=== PATIENT | male | born 1955 | race Caucasian/White ===

== ENCOUNTER 2020-02-04 17:16 | Inpatient (IN) | payer OTHER ==
[~2020-02-04] VITALS: Ht 182.9 cm; Wt 117.9 kg
[2020-02-18] MEDS ORDERED: VASOTEC5 MG PO (07:57)
[2020-02-18] MEDS ORDERED: CARVEDILOL PO (07:57)
[2020-02-18] MEDS ORDERED: LANOXIN125 MCG PO (07:58)
[2020-02-18] MEDS ORDERED: LASIX20 MG PO (07:58)
[2020-02-18] MEDS ORDERED: ALDACTONE25 MG PO (07:59)
[2020-02-18] MEDS ORDERED: ELIQUIS5 MG PO (07:59)
[2020-02-23] MEDS ORDERED: CARVEDILOL25 M1 PO (15:55)
[2020-02-25] MEDS ORDERED: DUI500 PO (13:44)
[2020-02-25] MEDS ORDERED: PERCOCET 5-3251 EACH PO (13:44)
[2020-02-25] MEDS ORDERED: ELIQUIS5 M1 PO (13:44)
== END 2020-02-25 19:36 | DRG 470 ==
LOC: SURH 02-23 08:30 → EDBD 02-23 08:30 → SURG 02-23 10:12 → O/R 02-23 10:12 → SURH 02-23 13:00 → SURG 02-23 17:02
PROVIDERS: ADMIT Orthopaedic Surgery; ATTEND Orthopaedic Surgery
PROC: 0MNN0ZZ Release Right Knee Bursa and Ligament, Open Approach (ICD-10-PCS; 2020-02-23)
PROC: 0SRC0JZ Replacement of Right Knee Joint with Synthetic Substitute, Open Approach (ICD-10-PCS; principal; 2020-02-23 13:00)
DX: M17.11 Unilateral primary osteoarthritis, right knee (principal); D62 Acute posthemorrhagic anemia; M22.11 Recurrent subluxation of patella, right knee; I25.10 Atherosclerotic heart disease of native coronary artery without angina pectoris; Z20.828 Contact with and (suspected) exposure to other viral communicable diseases

== ENCOUNTER 2020-11-02 08:15 | Inpatient (IN) | payer OTHER ==
[~2020-11-02] VITALS: Ht 182.9 cm; Wt 120.2 kg
[~2020-11-02 08:15] MED LIST: ALDACTONE25 MG PO; CARVEDILOL PO; CARVEDILOL25 M1 PO; DUI500 PO; ELIQUIS5 M1 PO; ELIQUIS5 MG PO; LANOXIN125 MCG PO; LASIX20 MG PO; PERCOCET 5-3251 EACH PO; VASOTEC5 MG PO
[2020-11-02] MEDS ORDERED: ALDACTONE25 MG PO (13:27)
[2020-11-10] MEDS ORDERED: PERCOCET 5-3251 EACH PO (16:28)
[2020-11-10] MEDS ORDERED: DUI500 PO (16:28)
[2020-11-10] MEDS ORDERED: ELIQUIS5 M1 PO (16:28)
== END 2020-11-10 19:31 | DRG 470 ==
LOC: ADM 08:15 → EDSTATUS 08:15 → SURH 11-08 07:00 → O/R 11-08 07:07 → SURH 11-08 08:15 → SURG 11-08 15:31
PROVIDERS: ADMIT Orthopaedic Surgery; ATTEND Orthopaedic Surgery
PROC: 0SRD0J9 Replacement of Left Knee Joint with Synthetic Substitute, Cemented, Open Approach (ICD-10-PCS; principal; 2020-11-08 07:00)
DX: M17.12 Unilateral primary osteoarthritis, left knee (principal); D62 Acute posthemorrhagic anemia; I11.9 Hypertensive heart disease without heart failure; I25.10 Atherosclerotic heart disease of native coronary artery without angina pectoris; I34.1 Nonrheumatic mitral (valve) prolapse; E66.8 Other obesity; Z68.35 Body mass index [BMI] 35.0-35.9, adult; Z95.0 Presence of cardiac pacemaker